=== PATIENT | female | born 1950 | race Caucasian/White ===

== ENCOUNTER → 2025-02-22 15:27 | Outpatient (BNVA) | payer BC, SELFPAY | PROVIDERS: Referring Provider Registered Nurse; Visit Provider Internal Medicine Rheumatology | DX: M54.2 Cervicalgia (principal); Z79.899 Other long term (current) drug therapy | CPT/HCPCS: 36415; 72040; 72100; 80076; 82306; 82565; 83520; 84520; 85025; 85651; 86140; 86160; 86162; 86200; 86235; 86255; 86376; 86480; 86704; 86803; 87340 ==